=== PATIENT | female | born 1995 | race Caucasian/White ===

== ENCOUNTER 2018-05-14 13:22 | Outpatient (CLI) | payer BC ==
--- NOTE | 2018-05-14 14:26 | ULT ---
LIMITED LEFT BREAST ULTRASOUND: Date: 05-14-18 Provided Clinical History: Left breast palpable abnormality. FINDINGS: Limited sonographic interrogation was performed of the left breast at the 2 o'clock position in the r egion of palpable concern. There is a normal appearing, nonenlarged lymph node in the region of the palpable concern. No concern ing sonographic findings are evident. IMPRESSION: Normal appearing lymph node is seen in the region of palpable concern. No concerning sonographic find ings are evident. POS: OFF
== END 2018-05-14 13:23 | disposition home or self-care (01) ==
LOC: BICULT 13:22
PROVIDERS: ATTEND Student in an Organized Health Care Education/Training Program
DX: N63.20 Unspecified lump in the left breast, unspecified quadrant (principal)